=== PATIENT | male | born 1965 | race Caucasian/White ===

== ENCOUNTER 2017-02-14 05:53 | Day surgery (SDC) | payer BC ==
[2017-02-14] MEDS ORDERED: Lactated Ringers 1,000 ML IV SCH (07:00)
[2017-02-14] MEDS ORDERED: Lactated Ringers 1,000 ML IV ONE (07:01)
[2017-02-14] MEDS ORDERED: Versed 2 MG/2 ML Injection IV ONE (08:00)
[2017-02-14] MEDS ORDERED: DIPRIVAN 200 MG/20 ML IV ONE (08:00)
--- NOTE | 2017-02-14 08:52 | OP ---
SURGERY DATE/TIME: 02/14/2017809 PREOPERATIVE DIAGNOSIS: Rectal bleeding and abdominal pain. POSTOPERATIVE DIAGNOSIS: Mild terminal ileitis and a few scattered diverticula. PROCEDURE: Colonoscopy with biopsy. SURGEON: Dr. Chavez. ANESTHESIA: Medications given by anesthesia department. HISTORY: The patient is a 51 year-old white male patient presenting now for diagnostic colon exam due to the presence of rectal bleeding and abdominal pain. The patient was appraised of the risks of the procedure including the risk of perforation, phlebitis, untoward reaction to medication, bleeding and missed lesions. The patient verbalized his understanding and desired to have the procedure performed. DESCRIPTION OF PROCEDURE: The patient was given the medications by the anesthesia department. He had continuous pulse oximetry, ECG monitoring, intermittent blood pressure monitoring and tidal CO2 monitoring during the examination. He was placed in the left lateral decubitus position. A digital rectal examination was performed and revealed normal anal sphincter tone and no masses, no hemorrhoids, no fissure. The prostate was felt to be normal. The scope was introduced into the rectum. A view was developed into the cecum including a distance in the terminal ileum where there was noted to be some erythema. Biopsies were obtained here to rule out the presence of underlying Crohn's disease. Upon insertion and withdrawal, including a retroflex view in the rectum otherwise we noted a few scattered diverticula. The scope was removed from the patient who tolerated the procedure well and was sent back to OP recovery in good condition. The prep was noted to be fair to good.
[2017-02-14 09:46] VITALS: O2SAT 96
[2017-02-14 09:52] VITALS: BP 114/83; PULSE 66
== END 2017-02-14 09:35 | disposition home or self-care (01) ==
LOC: SDC 05:53
PROVIDERS: ATTEND Family Medicine
PROC: 0DBB8ZX Excision of Ileum, Via Natural or Artificial Opening Endoscopic, Diagnostic (ICD-10-PCS; principal; 2017-02-14)
DX: K52.9 Noninfective gastroenteritis and colitis, unspecified (principal); K57.90 Diverticulosis of intestine, part unspecified, without perforation or abscess without bleeding
CPT/HCPCS: 00740; 36415; 88305; J2250; J2704